=== PATIENT | female | born 1980 | race Caucasian/White ===

== ENCOUNTER 2017-03-01 06:03 | Emergency (ER) | payer OTHER ==
[~2017-03-01] VITALS: Ht 162.6 cm; Wt 66.5 kg
[2017-03-01 06:33] LABS: HEMATOCRIT 39.1 % (36.0-46.0); MCH 30.5 PG (29.0-34.0); MCHC 33.5 G/DL (30.0-36.0); MCV 91.1 FL (83-99); MEAN PLAT.VOLUME 9.3 uM^3 (9.5-12.4); PLATELET COUNT 229 K/uL (156-360); RBC DIS.WIDTH-CV 12.5 % (11.8-14.6); RBC DIS.WIDTH-SD 41.3 % (39-53); RED BLOOD COUNT 4.29 M/uL (3.80-5.20); WHITE BLOOD COUNT 5.7 K/uL (4.1-10.2)
[2017-03-01 06:44] LABS: CHLORIDE 107 mEq/L (99-109); POTASSIUM 3.9 mEq/L (3.7-5.4); SODIUM 142 mEq/L (136-147)
[2017-03-01 06:46] LABS: GLUCOSE 76 mg/dL (70-99)
[2017-03-01 06:47] LABS: ANION GAP 12 MEQ/L (2-14)
[2017-03-01 06:48] LABS: TOTAL BILIRUBIN 0.5 mg/dL (0.0-1.0)
[2017-03-01 06:49] LABS: SERUM ETHYL ALCOHOL < 10 mg/dL
[2017-03-01 06:50] LABS: ALKALINE PHOSPHATASE 34 IU/L (3-129); GFR ESTIMATE (CALCULATED) > 59 mL/min/
[2017-03-01 06:52] LABS: UREA NITROGEN (BUN) 11 mg/dL (9-23)
[2017-03-01 06:53] LABS: SALICYLATE < 5.0 MG/DL (15-30)
[2017-03-01 07:20] LABS: QUANTITATIVE HCG < 4.0 MIU/ML
[2017-03-01 11:49] VITALS: BP 97/55
== END 2017-03-01 12:14 | disposition home or self-care (01) ==
LOC: EME → EDBD 06:03 → EME 06:03
PROVIDERS: Emergency Medicine
DX: T42.4X1A Poisoning by benzodiazepines, accidental (unintentional), initial encounter (principal); F13.10 Sedative, hypnotic or anxiolytic abuse, uncomplicated; F17.200 Nicotine dependence, unspecified, uncomplicated
CPT/HCPCS: 80053; 81003; 84702; 85027; 93005; 99281; 99284; G0480; J7030